=== PATIENT | male | born 1950 | race Caucasian/White ===

== ENCOUNTER 2018-03-01 07:27 | Inpatient (IN) | payer OTHER, MEDICARE ==
[2018-03-01] VITALS (9 sets, daily range): BP systolic 119–159; BP diastolic 63–99; PULSE 69–74; RESP 18; TEMP 97.9–98.4; O2SAT 94–97
[~2018-03-01] VITALS: Ht 180.3 cm; Wt 111.5 kg
[2018-03-01 08:02] LABS: AUTOMATED NEUTROPHIL # 3.8 TH/MM3 (1.8-7.7); BASOPHIL % 0.5 % (0.0-2.0); EOSINOPHIL # 0.1 TH/MM3 (0-0.4); EOSINOPHIL % 1.8 % (0.0-4.0); HEMATOCRIT 42.7 % (39.0-51.0); HEMOGLOBIN 14.5 GM/DL (13.0-17.0); LYMPH % 21.9 % (9.0-44.0); LYMPHOCYTE # 1.3 TH/MM3 (1.0-4.8); MEAN CELL VOLUME 91.6 FL (80.0-100.0); MEAN CORPUSCULAR HEMOGLOBIN 31.2 PG (27.0-34.0); MEAN CORPUSCULAR HGB CONC 34.1 % (32.0-36.0); MEAN PLATELET VOLUME 9.6 FL (7.0-11.0); MONOCYTE # 0.7 TH/MM3 (0-0.9); NEUT % 63.8 % (16.0-70.0); PLATELET COUNT 194 TH/MM3 (150-450); RED BLOOD COUNT 4.66 MIL/MM3 (4.50-5.90); RED CELL DISTRIBUTION WIDTH 18.1 % (11.6-17.2); WHITE BLOOD COUNT 5.9 TH/MM3 (4.0-11.0)
[2018-03-01 08:12] LABS: INTERNATIONAL NORMALIZED RATIO 3.7 RATIO; PROTHROMBIN TIME - PATIENT 37.3 SEC (9.8-11.6)
[2018-03-01 08:17] LABS: ALBUMIN 3.4 GM/DL (3.4-5.0); ALT (GPT) 25 U/L (12-78); AST (GOT) 25 U/L (15-37); BICARBONATE 28.5 MEQ/L (21.0-32.0); BLOOD UREA NITROGEN 8 MG/DL (7-18); CALCIUM 8.9 MG/DL (8.5-10.1); CHLORIDE 98 MEQ/L (98-107); CREATININE 0.87 MG/DL (0.60-1.30); GLOMERULAR FILTRATION RATE 87 ML/MIN (>89); GLUCOSE,RANDOM 118 MG/DL (74-106); MAGNESIUM 1.9 MG/DL (1.5-2.5); PHOSPHORUS 2.6 MG/DL (2.5-4.9); SODIUM (NA) 137 MEQ/L (136-145)
--- NOTE | 2018-03-01 08:18 | RADRPT ---
EXAM DATE/TIME: 03/01/2018 07:47 [facility] COMPARISON: No previous studies available for comparison. INDICATIONS : Palpitations. MEDICAL HISTORY : None. SURGICAL HISTORY : Pacemaker. ENCOUNTER: Initial ACUITY: 1 day PAIN SCORE: 0/10 LOCATION: Bilateral chest FINDINGS: The heart is normal. The pulmonary vascular pattern is normal. No focal infiltrate is noted. There is a tiny 5 mm nodule within the right mid lung field consistent with possible granuloma. A left subcla vian multilead pacemaker has its tips in the right heart. There is no pneumothorax. Degenerative mata ges are noted throughout the thoracic spine. CONCLUSION: 1. No acute focal pulmonary infiltrate or pulmonary vascular congestion. 2. 5 mm nodule within the right midlung field consistent with possible granuloma. Outpatient CT of th e chest maybe helpful to confirm central calcification within this nodule if clinically indicated. Marbin Mason MD on March 01, 2018 at 8:13 Board Certified Radiologist. This report was verified electronically.
[2018-03-01 08:20] LABS: ALKALINE PHOSPHATASE 82 U/L (45-117); TOTAL BILIRUBIN ADULT 1.1 MG/DL (0.2-1.0); TROPONIN I LESS THAN 0.02 NG/ML (0.02-0.05)
--- NOTE | 2018-03-01 08:20 | RADRPT ---
EXAM DATE/TIME: 03/01/2018 08:11 [facility] COMPARISON: No previous studies available for comparison. INDICATIONS : Left-sided cephalgia. RADIATION DOSE: 40.63 CTDIvol (mGy) MEDICAL HISTORY : Hypertension. SURGICAL HISTORY : Pacemaker. ENCOUNTER: Initial ACUITY: 2 days PAIN SCALE: 4/10 LOCATION: Left cranial TECHNIQUE: Multiple contiguous axial images were obtained of the head. Using automated exposure control and adj ustment of the mA and/or kV according to patient size, radiation dose was kept as low as reasonably a chievable to obtain optimal diagnostic quality images. DICOM format image data is available electro nically for review and comparison. FINDINGS: CEREBRUM: The ventricles are normal for age. No evidence of midline shift, mass lesion, hemorrhage or acute in farction. No extra-axial fluid collections are seen. POSTERIOR FOSSA: The cerebellum and brainstem are intact. The 4th ventricle is midline. The cerebellopontine angle i s unremarkable. EXTRACRANIAL: The visualized portion of the orbits is intact. SKULL: The calvaria is intact. No evidence of skull fracture. CONCLUSION: No acute disease. Marbin Mason MD on March 01, 2018 at 8:16 Board Certified Radiologist. This report was verified electronically.
--- NOTE | 2018-03-01 08:35 | PD ---
HPI Chief Complaint: Neuro Symptoms/ Deficits Time Seen by Provider: 07:40 Travel History International Travel<30 days: No Contact w/Intl Traveler<30days: No Traveled to known affect area: No History of Present Illness HPI 67-year-old male states for 2 days he has been having weakness and numbness to his left arm. He states he is due to have his Coumadin level checked next week. He states that he gets it checked every 6 weeks. He states he is also having more weakness than normal to his left leg. He denies any other concurrent complaints other than intermittent headache. Quality is tingly. Location is left arm. Severity is progressive and worsened again this morning. He denies specific modifying factors. PFSH Past Medical History Hx Anticoagulant Therapy: Yes (COUMADIN, ASA ) Cardiovascular Problems: Yes (HTN, A-FIB) Diabetes: Yes Patient Takes Glucophage: No Hypertension: Yes Past Surgical History Cardiac Surgery: Yes (PACEMAKER X 3, ABLATION) Social History Alcohol Use: Yes Tobacco Use: No Substance Use: No Allergies-Medications (Allergen,Severity, Reaction): Coded Allergies: lisinopril (Verified Adverse Reaction, Mild, Chest Pain, 03/01/18) enoxaparin (Verified Adverse Reaction, Unknown, 03/01/18) Review of Systems Except as stated in HPI: all other systems reviewed are Neg Physical Exam Narrative GENERAL: 67-year-old male in no apparent distress SKIN: Focused skin assessment warm/dry. HEAD: Atraumatic. Normocephalic. EYES: Pupils equal and round. No scleral icterus. No injection or drainage. ENT: No nasal bleeding or discharge. Mucous membranes pink and moist. NECK: Trachea midline. CARDIOVASCULAR: irregular rate and rhythm. Paced on monitor RESPIRATORY: No accessory muscle use. Clear to auscultation. Breath sounds equal bilaterally. GASTROINTESTINAL: Abdomen soft, non-tender, nondistended. MUSCULOSKELETAL: No obvious deformities. No clubbing. No cyanosis. NEUROLOGICAL: Awake and alert. Left arm drift noted, decrease strength to left arm, left leg 4 out of 5, notes numbness to left arm. Normal speech. PSYCHIATRIC: Appropriate mood and affect; insight and judgment normal. Data Data Last Documented VS Vital Signs Date Time Temp Pulse Resp B/P (MAP) Pulse Ox O2 Delivery O2 Flow Rate FiO2 03/01/18 07:46 98.3 71 18 159/99 (119) 97 Room Air Orders Orders Magnesium (Mg) (03/01/18 07:40) Phosphorus (Po4) (03/01/18 07:40) Complete Blood Count With Diff (03/01/18 07:40) Comprehensive Metabolic Panel (03/01/18 07:40) Ckmb (Isoenzyme) Profile (03/01/18 07:40) Troponin I (03/01/18 07:40) Urinalysis - C+S If Indicated (03/01/18 07:40) Act Partial Throm Time (Ptt) (03/01/18 07:40) Prothrombin Time / Inr (Pt) (03/01/18 07:40) Ct Brain W/O Iv Contrast(Rout) (03/01/18 ) Chest, Single Ap (03/01/18 ) Electrocardiogram (03/01/18 ) Iv Access Insert/Monitor (03/01/18 07:40) Ecg Monitoring (03/01/18 07:40) Oximetry (03/01/18 07:40) Type And Screen (03/01/18 07:40) CKMB (03/01/18 07:30) CKMB% (03/01/18 07:30) Admit Order (Ed Use Only) (03/01/18 08:53) Labs Laboratory Tests Test 03/01/18 07:30 White Blood Count 5.9 TH/MM3 Red Blood Count 4.66 MIL/MM3 Hemoglobin 14.5 GM/DL Hematocrit 42.7 % Mean Corpuscular Volume 91.6 FL Mean Corpuscular Hemoglobin 31.2 PG Mean Corpuscular Hemoglobin Concent 34.1 % Red Cell Distribution Width 18.1 % Platelet Count 194 TH/MM3 Mean Platelet Volume 9.6 FL Neutrophils (%) (Auto) 63.8 % Lymphocytes (%) (Auto) 21.9 % Monocytes (%) (Auto) 12.0 % Eosinophils (%) (Auto) 1.8 % Basophils (%) (Auto) 0.5 % Neutrophils # (Auto) 3.8 TH/MM3 Lymphocytes # (Auto) 1.3 TH/MM3 Monocytes # (Auto) 0.7 TH/MM3 Eosinophils # (Auto) 0.1 TH/MM3 Basophils # (Auto) 0.0 TH/MM3 CBC Comment DIFF FINAL Differential Comment Prothrombin Time 37.3 SEC Prothromb Time International Ratio 3.7 RATIO Activated Partial Thromboplast Time 46.4 SEC Blood Urea Nitrogen 8 MG/DL Creatinine 0.87 MG/DL Random Glucose 118 MG/DL Total Protein 7.0 GM/DL Albumin 3.4 GM/DL Calcium Level 8.9 MG/DL Phosphorus Level 2.6 MG/DL Magnesium Level 1.9 MG/DL Alkaline Phosphatase 82 U/L Aspartate Amino Transf (AST/SGOT) 25 U/L Alanine Aminotransferase (ALT/SGPT) 25 U/L Total Bilirubin 1.1 MG/DL Sodium Level 137 MEQ/L Potassium Level 3.8 MEQ/L Chloride Level 98 MEQ/L Carbon Dioxide Level 28.5 MEQ/L Anion Gap 11 MEQ/L Estimat Glomerular Filtration Rate 87 ML/MIN Total Creatine Kinase 180 U/L Creatine Kinase MB 2.9 NG/ML Troponin I LESS THAN 0.02 NG/ML MDM Medical Decision Making Medical Screen Exam Complete: Yes Emergency Medical Condition: Yes Medical Record Reviewed: Yes (Past history confirmed) Interpretation(s) CBC & BMP Diagram 03/01/18 07:30 Total Protein 7.0, Albumin 3.4, Calcium Level 8.9, Phosphorus Level 2.6, Magnesium Level 1.9, Alkaline Phosphatase 82, Aspartate Amino Transf (AST/SGOT) 25, Alanine Aminotransferase (ALT/SGPT) 25, Total Bilirubin 1.1 H Last [address] 03/01/18 0000 Signed Impressions: Service Date/Time: Thursday, March 01, 2018 08:11 - CONCLUSION: No acute disease. Marbin Mason MD Chest X-Ray 03/01/18 0000 Signed Impressions: Service Date/Time: Thursday, March 01, 2018 07:47 - CONCLUSION: 1. No acute focal pulmonary infiltrate or pulmonary vascular congestion. 2. 5 mm nodule within the right midlung field consistent with possible granuloma. Outpatient CT of the chest maybe helpful to confirm central calcification within this nodule if clinically indicated. Marbin Mason MD Differential Diagnosis Stroke, mass, bleed Narrative Course Will check workup and monitor. CT brain without bleed or mass. INR is therapeutic at 3.7. Will discuss with neurology and admit. patient updated Physician Communication Physician Communication dr morejon agrees to admit, states Attending is dr Manuel pritchett states to give baby aspirin and will follow Diagnosis Primary Impression: Left arm weakness Additional Impression: Left arm numbness Admitting Information Admitting Physician Requests: Admit Kayla Bello MD Mar 01, 2018 08:34
--- NOTE | 2018-03-01 09:18 | HHI.HP ---
[facility] Service Family Medicine Primary Care Physician Christi Jones MD Admission Diagnosis stroke Diagnoses: International Travel<30 Days: No Contact w/Intl Traveler<30days: No Known Affected Area: No History of Present Illness 67 y/o M w/hx of Afib and DM2 presents with left arm pain and weakness. Went to his PCP Dr. Rodrigues at the [facility] for pain in neck and shoulder that started two days ago, sent patient over due to concern for stroke. Pain in neck and shoulders has been worsening. Started when patient was sleeping. He woke up and took a couple of pills of tramadol, which didn't work. Patient has been up all night not been able to sleep due to pain. Starts at left side of the back of the head to the neck and goes down the arm to the hand. It a sharp, constant 9/10 pain. Laying flat makes pain worse. Raising arm position improves pain as well as sitting up. No numbness or tingling; endorses increased weakness of left arm. +nausea, headache with pain along the left samaritan, increased loss of balance that caused him to fall twice. Was moving things in the house and fell down, was able to get back up immediately. States when he closes his eyes, he feels off balance. No vision changes, no presyncope , no problem thinking or remembering things, no changes in mood. Has pacemaker in place - MRI contraindicated. Possible hx of heart attack prior to 2005. 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 Took his medications this morning. Blue Team: Dr. Christi Rodrigues, telephone # [phone] ext [phone] (Pam Chin MD R1) Review of Systems Constitutional: DENIES: Fatigue, Weight loss, Change in appetite Endocrine: DENIES: Polyuria Eyes: DENIES: Blurred vision, Eye pain, Vision loss Ears, nose, mouth, throat: COMPLAINS OF: Tinnitus (not new, chronic), Running Nose (allergies), DENIES: Hearing loss, Vertigo Gastrointestinal: DENIES: Abdominal pain, Bloody stools, Diarrhea, Nausea Genitourinary: DENIES: Urinary incontinence, Dysuria Musculoskeletal: DENIES: Muscle aches Integumentary: DENIES: Abnormal pigmentation Hematologic/lymphatic: DENIES: Bruising Neurologic: DENIES: Seizures, Speech Problems Psychiatric: DENIES: Confusion, Mood changes (Pam Chin MD R1) Past Family Social History Past Medical History Afib - pacemaker placed in 2005 HTN HLD DM type 2 COPD Osteoarthritis Ischemic cardiomyopathy 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 Past Surgical History Thumb surgery Cardiac ablation 3 pacemakers Reported Medications Carvedilol 25 mg, 1 and a one half tablets BID Prescribed Metformin 500 , 1 half tablet daily; but refuses to take it, makes him sick Furosemide 20 mg daily 81 mg aspirin chew daily Mg supplement 400 TID Warfarin 5 mg 1/2 tablet PO daily except one tablet PO MWF Vitamin B3 1,000 units, 2 tablets daily Albuterol inhaled 2 puffs by mouth q4H PRN Tramadol 50 mg Q8Hr PRN Folic acid 1 mg daily Etanercept injection weekly for arthritis simvastatin 80 mg HS Ketotifen eye drops -one drop both eyes BID for inflammation (Pam Chin MD R1) Allergies: Coded Allergies: lisinopril (Verified Adverse Reaction, Mild, Chest Pain, 03/01/18) enoxaparin (Verified Adverse Reaction, Unknown, 03/01/18) Family History Mom: , none Dad: ,none Social History Does not drink, smokes once in a while for about 50 years. Lives in [place] w/. No illicit or recreational drugs. (Pam Chin MD R1) Physical Exam Vital Signs Vital Signs Date Time Temp Pulse Resp B/P (MAP) Pulse Ox O2 Delivery O2 Flow Rate FiO2 03/01/18 07:46 98.3 71 18 159/99 (119) 97 Room Air 03/01/18 07:46 73 18 97 Room Air 03/01/18 07:45 74 18 97 Room Air 03/01/18 07:37 98.3 71 18 159/99 (119) 97 Physical Exam GENERAL: This is a friendly, elderly gentleman laying flat in bed, appears uncomfortable. SKIN: Cool and dry. HEAD: Atraumatic. Normocephalic. No temporal or scalp tenderness. EYES: Pupils equal round and reactive. Extraocular motions intact. No scleral icterus. No injection or drainage. ENT: Nose without bleeding, purulent drainage or septal hematoma. Throat without erythema, tonsillar hypertrophy or exudate. Uvula midline. Airway patent. NECK: Trachea midline. CARDIOVASCULAR: Regular rate and rhythm without murmurs, gallops, or rubs. RESPIRATORY: Clear to auscultation. Mildly decreased airflow. GASTROINTESTINAL: Abdomen soft, non-tender, nondistended. MUSCULOSKELETAL: Extremities without clubbing, cyanosis, or edema. No calf tenderness. NEUROLOGICAL: Awake and alert. Short term memory intact. Cranial nerves II through XII intact. No facial droop or tongue deviation. Possible pronator drift - patient complains of arm pain and difficulty keep arm in externally rotated position. RUE 5/5 strength, sensation intact, reflexes 2+. LUE 4/5 strength, unable to lift more than 90 degrees, sensation intact, reflexes 2+. Lower extremities has slightly decreased sensation (patient states due to peripheral neuropathy), 5/5 motor strength. Sensation and vibration intact in upper and lower extremities. No problems with rapid alternating movements, no hemispace neglect, able to name simple objects, able to perform heel to ibanez. Five out of 5 muscle strength in all muscle groups. Normal speech. No dysarthria or dysphasia. Good focus, attention, and comprehension. Laboratory Laboratory Tests Test 03/01/18 07:30 White Blood Count 5.9 Red Blood Count 4.66 Hemoglobin 14.5 Hematocrit 42.7 Mean Corpuscular Volume 91.6 Mean Corpuscular Hemoglobin 31.2 Mean Corpuscular Hemoglobin Concent 34.1 Red Cell Distribution Width 18.1 Platelet Count 194 Mean Platelet Volume 9.6 Neutrophils (%) (Auto) 63.8 Lymphocytes (%) (Auto) 21.9 Monocytes (%) (Auto) 12.0 Eosinophils (%) (Auto) 1.8 Basophils (%) (Auto) 0.5 Neutrophils # (Auto) 3.8 Lymphocytes # (Auto) 1.3 Monocytes # (Auto) 0.7 Eosinophils # (Auto) 0.1 Basophils # (Auto) 0.0 CBC Comment DIFF FINAL Differential Comment Prothrombin Time 37.3 Prothromb Time International Ratio 3.7 Activated Partial Thromboplast Time 46.4 Blood Urea Nitrogen 8 Creatinine 0.87 Random Glucose 118 Total Protein 7.0 Albumin 3.4 Calcium Level 8.9 Phosphorus Level 2.6 Magnesium Level 1.9 Alkaline Phosphatase 82 Aspartate Amino Transf (AST/SGOT) 25 Alanine Aminotransferase (ALT/SGPT) 25 Total Bilirubin 1.1 Sodium Level 137 Potassium Level 3.8 Chloride Level 98 Carbon Dioxide Level 28.5 Anion Gap 11 Estimat Glomerular Filtration Rate 87 Total Creatine Kinase 180 Creatine Kinase MB 2.9 Troponin I LESS THAN 0.02 (Pam Chin MD R1) Result Diagram: 03/01/18 0730 03/01/18 0730 Imaging Last Impressions Head CT 03/01/18 0000 Signed Impressions: Service Date/Time: Thursday, March 01, 2018 08:11 - CONCLUSION: No acute disease. Marbin Mason MD Chest X-Ray 03/01/18 0000 Signed Impressions: Service Date/Time: Thursday, March 01, 2018 07:47 - CONCLUSION: 1. No acute focal pulmonary infiltrate or pulmonary vascular congestion. 2. 5 mm nodule within the right midlung field consistent with possible granuloma. Outpatient CT of the chest maybe helpful to confirm central calcification within this nodule if clinically indicated. Marbin Mason MD (Pam Chin MD R1) Luis Fernando VTE Risk Assessment Luis Fernando VTE Risk Assessment: Mod/High Risk (score >= 2) (Pam Chin MD R1) Assessment and Plan Assessment and Plan 67 y/o M presenting w/left arm weakness and pain admitted for stroke-workup. Code Status FULL Discussed Condition With Dr. Quintana (Pam Chin MD R1) Attending Attestation THIS CASE WAS DISCUSSED WITH THE RESIDENT PHYSICIANS. I HAVE REVIEWED THE RECORD AND AGREE WITH THE ABOVE NOTE AND PLAN OF CARE WAS DISCUSSED. I HAVE AUTHORIZED THE ORDER FOR ADMISSION TO AN IN-PATIENT STATUS. At time of my exam the patient is complaining of continued pain in the neck and the arm and shoulder. He states the right arm is a little painful now as well. He states his leg continues to feel weak and "not right" He is able to lift his left arm off the bed but not resist. On exam --- neck -- TTP over the c5/c6 area, unable to extend and limited flexion, very limited rotation of the neck, Trapezius tenderness and spasm on the left side Left arm -- able to lift off the bed at the elbow but not the shoulder -- unable to resist any pressure 3/5 strength, very limited rotation and flexion/ extension of the left shoulder as well. Tender over the A-C joint left shoulder HEENT -- PERRL, OP clear, no cervical LAD CARDS -- regualr, no murmurs PULM - scattered wheeze, no crackles, moving air well ABD -- soft, NT, good bowel sounds SKIN - no lesions, no rashes NEURO _ speech and vision intact 1. left side weakness/pain -- consider CVA vs Musculoskeletal cause. CT neck reviewed with moderate stenosis of the C6/C7 range. MRI not possible due to pacemaker. Neuro consult pending. Will continue with current treatment plan and neuro checks --- check XRAY shoulder and trial of low dose muscle relaxant while workup pending. (Shameka Quintana MD) Problem List: (1) Left arm weakness ICD Codes: R29.898 - Other symptoms and signs involving the musculoskeletal system Status: Acute Plan: On Coumadin, INR 3.7 today, therapeutic CT head negative Cognition and mental status intact, short term memory intact Differential: ischemic stroke v acute cervical radiculopathy v migraine Vitals q4hrs Tele bedrest, fall precautions NIH stroke scale head of bed flat for 12 hours, permissive HTN to 200/100. Labetalol 10 mg IV Q2H PRN for SBP 220 or DBP >120. Neurochecks while awake Medications: SSI low dose Con't home Simvastatin 80 mg HS daily Aspirin 81 mg chew Testing: MRI contraindicated due to pacemaker CT of neck EKG, trops, and CK q6H Carotid US 2D echo Bedside swallow study - if passes, heart healthy diet Consults Neuro consulted, further recs pending Consulted rehab medicine, PT, CM (2) Control of atrial fibrillation with pacemaker ICD Codes: I48.91 - Unspecified atrial fibrillation; Z95.0 - Presence of cardiac pacemaker Plan: Warfarin 5 mg 1/2 tablet PO daily except one tablet PO MWF Hold due to supratherapeutic level 3.7 Check coags tomorrow Pharmacology consulted (3) HTN (hypertension) ICD Codes: I10 - Essential (primary) hypertension Plan: Home: Carvedilol 25 mg, 1 and a one half tablets BID Furosemide 20 mg daily Hold for now, allow permissive HTN up to 220/120 (4) Osteoarthritis ICD Codes: M19.90 - Unspecified osteoarthritis, unspecified site Status: Chronic Plan: Home: Tramadol 50 mg Q8Hr PRN Etanercept injection weekly for arthritis Will hold Tramadol for now (5) DM2 (diabetes mellitus, type 2) ICD Codes: E11.9 - Type 2 diabetes mellitus without complications Status: Chronic Plan: Non-compliant w/Metformin use Low dose sliding scale A1C (6) MRI contraindicated due to metal implant ICD Codes: Z53.09 - Procedure and treatment not carried out because of other contraindication Status: Chronic (7) HLD (hyperlipidemia) ICD Codes: E78.5 - Hyperlipidemia, unspecified Plan: Patient takes 80 mg Simvastatin daily. Order Atorvastatin 80 mg daily HS (8) COPD (chronic obstructive pulmonary disease) ICD Codes: J44.9 - Chronic obstructive pulmonary disease, unspecified Plan: Albuterol inhaled 2 puffs by mouth q4H PRN (9) FEN Plan: Fluids: none Electrolytes: not indicated Nutrition: heart healthy if passes swallow study DVT prophy: on warfarin, SCDs (Pam Chin MD R1) Physician Certification 2 Midnight Certification Type: Admission for Inpatient Services Order for Inpatient Services The services are ordered in accordance with Medicare regulations or non- Medicare payer requirements, as applicable. In the case of services not specified as inpatient-only, they are appropriately provided as inpatient services in accordance with the 2-midnight benchmark. Estimated LOS (days): 2 2 days is the estimated time the patient will need to remain in the hospital, assuming treatment plan goals are met and no additional complications. Post-Hospital Plan: Not yet determined (Pam Chin MD R1) 2 Midnight Certification Type: Admission for Inpatient Services Post-Hospital Plan: Not yet determined (Shameak Quintana MD) Problem Qualifiers (1) DM2 (diabetes mellitus, type 2): Qualified Codes: E11.8 - Type 2 diabetes mellitus with unspecified complications Pam Chin MD R1 Mar 01, 2018 09:18 Shameka Quintana MD Mar 01, 2018 15:50
[2018-03-01] MEDS ORDERED: SODIUM CHLORIDE 0.9% FLUSH 10 ML FLUSH IV FLUSH PRN (09:45)
[2018-03-01] MEDS ORDERED: DEXTROSE 50% IN WATER 50 ML VIAL(D50) IV PUSH PRN (09:45)
[2018-03-01] MEDS ORDERED: LABETALOL HCL 100 MG/20 ML VIAL IV PUSH PRN (09:45)
[2018-03-01] MEDS ORDERED: GLUCAGON 1 MG/ML VIAL OTHER PRN (09:45)
[2018-03-01] MEDS ORDERED: ACETAMINOPHEN 325 MG TAB PO PRN ×2 (09:45→18:15)
[2018-03-01] MEDS ORDERED: ASPIRIN 81 MG CHEW TAB PO ONE (10:00)
[2018-03-01] MEDS ORDERED: RESP: ALBUTEROL 2.5 MG/3 ML NEB (PRN) NEB (10:45)
--- NOTE | 2018-03-01 11:15 | RADRPT ---
EXAM DATE/TIME: 03/01/2018 10:09 [facility] COMPARISON: No previous studies available for comparison. INDICATIONS : Cerebrovascular accident. MEDICAL HISTORY : Hypertension. Tinnitus. Afib. Diabetes. Anticoagulant therapy, Coumadin & Aspirin. SURGICAL HISTORY : Pacemaker. Cardiac ablation. Bilateral knee surgery. Bilateral hand surgery. ENCOUNTER: Initial ACUITY: 1 day PAIN SCORE: 4/10 LOCATION: Bilateral neck PEAK SYSTOLIC VELOCITIES (cm/sec): ICA/CCA RATIO: Right: 1.1 Left: 1.0 ICA: Right: 68 Left: 75 CCA: Right: 60 Left: 77 ECA: Right: 92 Left: 76 VERTEBRAL: Right: 57 antegrade Left: 41 antegrade Elevated flow velocities and ICA/CCA ratios have been found to correlate with increased degrees of vessel stenosis, calculated as percentage of diameter relative to a normal segment of distal ICA/CCA FINDINGS: RIGHT CAROTID: No significant stenosis is visualized. The waveforms are within normal limits. LEFT CAROTID: No significant stenosis is visualized. The waveforms are within normal limits. VERTEBRAL ARTERIES: Antegrade flow is seen in both vertebral arteries. MISCELLANEOUS: None. CONCLUSION: Normal examination. Kenneth Ceballos MD on March 01, 2018 at 11:12 Board Certified Radiologist. This report was verified electronically.
[2018-03-01] MEDS: INSULIN ASPART SUPPLEMENTAL SCALE SQ SCH ×3 (12:00→21:00)
--- NOTE | 2018-03-01 13:36 | EKG ---
Date Performed: 03/01/2018 Time Performed: 07:35:49 PTAGE: 67 years EKG: ELECTRONIC VENTRICULAR PACEMAKER ABNORMAL RHYTHM ECG NO PREVIOUS TRACING DOCTOR: Jaswant Painter Interpretating Date/Time 03/01/2018 13:34:54
[2018-03-01 13:42] LABS: TROPONIN I LESS THAN 0.02 NG/ML (0.02-0.05)
[2018-03-01 14:31] LABS: BILIRUBIN, URINE NEG (NEG); BLOOD, URINE NEG (NEG); GLUCOSE,URINE NEG (NEG); HYALINE CAST, URINE 3 /lpf (RARE); KETONE, URINE 10 mg/dL (NEG); MUCUS URINE FEW /lpf (OCC); NITRITE,URINE NEG (NEG); PH, URINE 5.5 (5.0-8.5); SQUAMOUS EPITHELIAL CELL URINE <1 /hpf (0-5); URINE COLOR YELLOW (YELLW/STRAW); URINE LEUKOCYTE ESTERASE NEG (NEG)
--- NOTE | 2018-03-01 15:05 | RADRPT ---
EXAM DATE/TIME: 03/01/2018 14:35 [facility] COMPARISON: No previous studies available for comparison. INDICATIONS : Worsening neck pain. RADIATION DOSE: 23.98 CTDIvol (mGy) MEDICAL HISTORY : Cardiovascular disease. Cerebrovascular disease. Hypertension.Diabetes SURGICAL HISTORY : Pacemaker. ENCOUNTER: Initial ACUITY: 1 day PAIN SCALE: 9/10 LOCATION: neck TECHNIQUE: Volumetric scanning of the cervical spine was performed. Multiplanar reconstructions in the sagittal, coronal and oblique axial planes were performed. Using automated exposure control and adjustment o f the mA and/or kV according to patient size, radiation dose was kept as low as reasonably achievable to obtain optimal diagnostic quality images. DICOM format image data is available electronically f or review and comparison. FINDINGS: VERTEBRAE: Normal vertebral body height. Moderate disc space narrowing of C6-7. ALIGNMENT: No evidence of subluxation. C2-C3: The bony spinal canal is normal in size. No evidence of disc bulge or herniation. The neural forami na are bilaterally patent. C3-C4: The bony spinal canal is normal in size. No evidence of disc bulge or herniation. The neural forami na are bilaterally patent. C4-C5: The bony spinal canal is normal in size. No evidence of disc bulge or herniation. The neural forami na are bilaterally patent. C5-C6: The bony spinal canal is mildly stenotic. The neural foramina are bilaterally patent. C6-C7: Moderate canal stenosis secondary to a ridge of disc osteophyte complex. The neural foramina are delbert aterally patent. C7-T1: The bony spinal canal is normal in size. No evidence of disc bulge or herniation. The neural forami na are bilaterally patent. CONCLUSION: Moderate stenosis at the C6-7 level. Mild narrowing at the C5-6 level. No acute fracture. Kenneth Ceballos MD on March 01, 2018 at 14:59 Board Certified Radiologist. This report was verified electronically.
[2018-03-01] MEDS ORDERED: WARFARIN SOD 5 MG TAB PO SCH (16:00)
--- NOTE | 2018-03-01 16:06 | MB ---
cc: Manuel Draper MD, PhD DATE: 03/01/2018 REASON FOR CONSULTATION: Left arm weakness. HISTORY OF PRESENT ILLNESS: Mr. Phoenix is a very nice 67-year-old man who woke up a couple of days ago noting severe pain in the left neck area, left shoulder blade area, which progressed into the left arm over a 2-day period of time. Began to experience numbness in the arm, tingling and weakness, particularly of the hand. He has a long history of left leg weakness. This is not new. He has no other neurologic symptoms. PAST MEDICAL HISTORY: He has diabetes, which he states has been under very good control. He has a history of hyperlipidemia, hypertension, COPD, ischemic cardiomyopathy, ulnar neuropathy, peripheral neuropathy, cardiac ablation, pacemaker x 3 in the past. MEDICATIONS AT HOME: Carvedilol, Lasix, aspirin 81 mg daily, Coumadin 5 mg 1/2 tablet daily, vitamin B1, albuterol inhaler, tramadol, folic acid. ALLERGIES: LISINOPRIL, ENOXAPARIN. NEUROLOGIC EXAMINATION: Blood pressure is 159/99, pulse 73, respiratory rate is 18, temperature is 98.3. Higher cortical functions normal. Cranial nerves intact. Motor: He has 4/5 left deltoid, 4/5 left biceps, 4/5 triceps, 3/5 interossei on the left. He has got normal strength in the right arm and both legs. Sensory: Diffusely diminished left arm reflexes at 1+, symmetric, with no Babinski sign. DIAGNOSTIC DATA: CT brain is normal. CT cervical spine shows mild stenosis at C6-7 and C5-6. No acute fracture. Carotid ultrasound is negative. 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 RECOMMENDATIONS: We will start gabapentin. Recommend physical therapy. Manuel Draper MD, PhD KATYA/SB , 03:29 PM , 04:05 PM
[2018-03-01 16:11] LABS: HEMOGLOBIN A1C 6.3 % (4.3-6.0)
[2018-03-01] MEDS ORDERED: NALOXONE HCL 0.4 MG/ML AMP IV PUSH PRN (18:15)
[2018-03-01] MEDS ORDERED: KETOROLAC TROMETHAMINE 30 MG/ML (IVP) VIAL IV PUSH PRN (18:15)
--- NOTE | 2018-03-01 18:31 | ECHRPT ---
Indication: CVA/TIA CONCLUSIONS The left ventricular systolic function is low normal with an estimated ejection fraction in the rang e of 50- 55%. Mild concentric left ventricular hypertrophy. Vnioi-rc-yirx mitral valve regurgitation. There is trace tricuspid valve regurgitation. Trace pulmonary valve regurgitation. BP: / HR: Rhythm: MEASUREMENTS (Male / Female) Normal Values Technical Quality:Fair 2D ECHO LV Diastolic Diameter PLAX 5.0 cm 4.2 - 5.9 / 3.9 - 5.3 cm LV Systolic Diameter PLAX 3.4 cm IVS Diastolic Thickness 1.2 cm 0.6 - 1.0 / 0.6 - 0.9 cm LVPW Diastolic Thickness 1.2 cm 0.6 - 1.0 / 0.6 - 0.9 cm LV Relative Wall Thickness 0.5 RV Internal Dim ED PLAX 3.2 cm LVOT Diameter 2.1 cm LA Systolic Diameter LX 3.9 cm 3.0 - 4.0 / 2.7 - 3.8 cm M-MODE Aortic Root Diameter MM 3.0 cm LA Systolic Diameter MM 6.2 cm LA Ao Ratio MM 2.1 AV Cusp Separation MM 1.7 cm DOPPLER AV Peak Velocity 136.0 cm/s AV Peak Gradient 7.4 mmHg LVOT Peak Velocity 91.8 cm/s LVOT Peak Gradient 3.4 mmHg AV Area Cont Eq pk 2.3 cm MV Area PHT 3.5 cm Mitral E Point Velocity 91.3 cm/s Mitral A Point Velocity 18.8 cm/s Mitral E to A Ratio 4.9 LV E' Lateral Velocity 6.5 cm/s Mitral E to LV E' Lateral Ratio 14.0 LV E' Septal Velocity 11.4 cm/s Mitral E to LV E' Septal Ratio 8.0 TR Peak Velocity 294.0 cm/s TR Peak Gradient 34.6 mmHg Right Atrial Pressure 10.0 mmHg Pulmonary Artery Systolic Pressu 44.6 mmHg Right Ventricular Systolic Press 44.6 mmHg FINDINGS LEFT VENTRICLE The left ventricular systolic function is low normal with an estimated ejection fraction in the rang e of 50- 55%. Mild concentric left ventricular hypertrophy. Normal left ventricular size. RIGHT VENTRICLE The right ventricular size is normal. LEFT ATRIUM The left atrial size is upper limits of normal. RIGHT ATRIUM The right atrial size is normal. ATRIAL SEPTUM Normal atrial septal thickness without atrial level shunting by limited color doppler interrogation. AORTA The aortic root and proximal ascending aorta are normal in size on limited imaging. MITRAL VALVE Structurally normal mitral valve. Tyxif-cu-wogs mitral valve regurgitation. No mitral valve stenosis. AORTIC VALVE Trileaflet aortic valve. No aortic valve stenosis or regurgitation. TRICUSPID VALVE Structurally normal tricuspid valve. There is trace tricuspid valve regurgitation. The estimated pulmonary arterial pressure is 44.6 mmHg. PULMONARY VALVE Trace pulmonary valve regurgitation. VESSELS The inferior vena cava is normal in size. PERICARDIUM No pericardial effusion. Nigel Hudson DO (Electronically Signed) Final Date:01 March 2018 18:30
--- NOTE | 2018-03-01 20:23 | RADRPT ---
EXAM DATE/TIME: 03/01/2018 20:01 [facility] COMPARISON: No previous studies available for comparison. INDICATIONS : Left shoulder pain. No known injury. MEDICAL HISTORY : Hypertension. AFIB. Diabetes. SURGICAL HISTORY : Pacemaker. ENCOUNTER: Initial ACUITY: 1 day PAIN SCORE: 4/10 LOCATION: Left Shoulder. FINDINGS: No fracture or subluxation seen of the left shoulder. There is moderate acromioclavicular and mild glenohumeral joint osteoarthritis. Small osteochondral body likely in the biceps tendon sheath at the level of the lower groove. There c ould also be subcentimeter osteochondral bodies in the axillary recess. CONCLUSION: 1. Intact left shoulder. 2. Moderate acromioclavicular joint osteoarthritis. 3. Mild glenohumeral joint osteoarthritis with suspected osteochondral bodies. Please see above. Milton Mayers MD on March 01, 2018 at 20:19 Board Certified Radiologist. This report was verified electronically.
[2018-03-01] MEDS ORDERED: ATORVASTATIN 40 MG TAB PO SCH ×2 (21:00)
[2018-03-01] MEDS: SODIUM CHLORIDE 0.9% FLUSH 10 ML FLUSH IV FLUSH SCH (21:44)
[2018-03-01] MEDS: GABAPENTIN 300 MG CAP PO SCH (21:45)
[2018-03-01] MEDS: traMADol HCL 50 MG TAB PO PRN (21:45)
[2018-03-01 22:59] LABS: TROPONIN I LESS THAN 0.02 NG/ML (0.02-0.05)
--- NOTE | 2018-03-01 23:26 | EKG ---
Date Performed: 03/01/2018 Time Performed: 19:34:25 PTAGE: 67 years EKG: ELECTRONIC VENTRICULAR PACEMAKER ABNORMAL RHYTHM ECG PREVIOUS TRACING : 03/01/2018 07.35 Since the previous tracing, no significant change noted DOCTOR: Nigel Hudson Interpretating Date/Time 03/01/2018 23:24:48
[2018-03-02] VITALS: BP 133/69; PULSE 70; RESP 18; TEMP 98.1; O2SAT 96
[2018-03-02 04:00] VITALS: BP 154/85; PULSE 76; RESP 18; TEMP 98; O2SAT 94
[2018-03-02] MEDS: traMADol HCL 50 MG TAB PO PRN ×2 (06:45→14:28)
[2018-03-02 07:26] LABS: INTERNATIONAL NORMALIZED RATIO 2.4 RATIO; PROTHROMBIN TIME - PATIENT 24.7 SEC (9.8-11.6)
[2018-03-02 07:40] LABS: BICARBONATE 28.3 MEQ/L (21.0-32.0); CALCIUM 9.2 MG/DL (8.5-10.1); CREATININE 0.74 MG/DL (0.60-1.30)
[2018-03-02 07:43] LABS: CHOLESTEROL/ HDL RATIO 2.14 RATIO
[2018-03-02] MEDS: INSULIN ASPART SUPPLEMENTAL SCALE SQ SCH ×2 (08:00→12:00)
[2018-03-02 08:22] VITALS: BP 148/87; PULSE 70; RESP 18; TEMP 97.9; O2SAT 95
[2018-03-02 08:37] VITALS: PULSE 69
[2018-03-02] MEDS ORDERED: CARVEDILOL 12.5 MG TAB PO SCH (09:00)
[2018-03-02] MEDS ORDERED: FUROSEMIDE 20 MG TAB PO SCH (09:00)
[2018-03-02] MEDS: GABAPENTIN 300 MG CAP PO SCH (10:06)
[2018-03-02] MEDS: SODIUM CHLORIDE 0.9% FLUSH 10 ML FLUSH IV FLUSH SCH (10:11)
[2018-03-02 10:36] LABS: HEMOGLOBIN A1C 6.4 % (4.3-6.0)
[2018-03-02 12:20] VITALS: BP 117/56; PULSE 72; RESP 18; TEMP 98; O2SAT 95
[2018-03-02] MEDS ORDERED: NEUR300C PO (12:21)
--- NOTE | 2018-03-02 12:42 | HHI.FPPN ---
Subjective Remarks Patient is doing well today. Reports pain in his left shoulder there is continued. Improved with tramadol 50 mg. No other problems or complaints. Is sitting up comfortably, able to tolerate food well. Vitals were stable overnight. (Pam Chin MD R1) Objective Vitals Vital Signs Date Time Temp Pulse Resp B/P (MAP) Pulse Ox O2 Delivery O2 Flow Rate FiO2 03/02/18 12:20 98.0 72 18 117/56 (76) 95 03/02/18 12:09 21 03/02/18 08:22 97.9 70 18 148/87 (107) 95 03/02/18 04:00 98.0 76 18 154/85 (108) 94 03/02/18 00:00 98.1 70 18 133/69 (90) 96 03/01/18 23:00 69 03/01/18 22:08 21 03/01/18 21:30 69 03/01/18 20:00 98.0 71 18 119/63 (81) 94 03/01/18 16:00 98.4 71 18 145/85 (105) 95 (Pam Chin MD R1) Result Diagram: 03/01/18 0730 03/02/18 0619 Objective Remarks O. CONSTITUTIONAL/GEN: normally nourished, in NAD. EYES: conjunctiva normal, PERRLA, EOMI. ENT: Mouth and pharynx normal. LUNGS: Mild expiratory wheeze on exam bilaterally, respiratory effort is normal. CARDIOVASCULAR: RR without murmur or gallop. No significant edema. GI/ABD: Soft nondistended. NEURO: No focal deficits. Gait is normal SKIN: color normal, no rashes noted. HEME/LYMPH: no bruising, petechia or significant adenopathy MUSC: back is normal in appearance. Extremities are normal in appearance. PSYCH/MENTAL STATUS: Alert and oriented. (Pam Chin MD R1) A/P Assessment and Plan 67 y/o M presenting w/left arm weakness and pain admitted for stroke-workup. Stroke workup found to be negative. CT scan shows mild stenosis of C6-C7 and 5- 6, found to have left brachial neuritis per neurology. Conservative management with PT and gabapentin twice daily recommended at this time. Discharge Planning Discharge today with PT referral, follow-up in neurology in 2 weeks, and gabapentin 300 mg twice daily. Patient may continue home tramadol for pain as needed. (Pam Chin MD R1) Attending Attestation Patient seen and examined. Still notes weakness in LUE with some pain. Has tramadol at home which he uses sparklingly for arthritic pain. Currently started on gabapentin by neurology with PT recommended. May use tramadol with gabapentin for break through pain. Type 2 DM. Was rpescribed metformin at [facility] but stopped taking when he ran out due to loose stool. Home BGM's reported fasting <130. Will continue current treatment with f/u appt at the [facility] in 2 weeks. Case reviewed and discussed with the resident team. Agree with plan of care as discussed with me and documented in the resident note. 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 twice daily (2) Control of atrial fibrillation with pacemaker ICD Codes: I48.91 - Unspecified atrial fibrillation; Z95.0 - Presence of cardiac pacemaker Plan: Warfarin 5 mg 1/2 tablet PO daily except one tablet PO MWF [facility]. Due for an appointment soon for warfarin adjustment Held yesterday due to supratherapeutic level 3.7 INR is therapeutic today at 2.4 Pharmacology consulted Patient to continue warfarin home medication after discharge and [facility] (3) HTN (hypertension) ICD Codes: I10 - Essential (primary) hypertension Plan: Resume: carvedilol 25 mg, 1 and a one half tablets BID Furosemide 20 mg daily (4) Osteoarthritis ICD Codes: M19.90 - Unspecified osteoarthritis, unspecified site Status: Chronic Plan: Home: Tramadol 50 mg Q8Hr PRN Etanercept injection weekly for arthritis (5) DM2 (diabetes mellitus, type 2) ICD Codes: E11.9 - Type 2 diabetes mellitus without complications Status: Chronic Plan: Non-compliant w/Metformin use Currently controlled without medication, A1c 6.3 Follow-up with PCP for further management (6) MRI contraindicated due to metal implant ICD Codes: Z53.09 - Procedure and treatment not carried out because of other contraindication Status: Chronic (7) HLD (hyperlipidemia) ICD Codes: E78.5 - Hyperlipidemia, unspecified Status: Chronic Plan: Patient takes 80 mg Simvastatin daily. Order Atorvastatin 80 mg daily HS while inpatient (8) COPD (chronic obstructive pulmonary disease) ICD Codes: J44.9 - Chronic obstructive pulmonary disease, unspecified Plan: Albuterol inhaled 2 puffs by mouth q4H PRN (9) FEN Plan: Fluids: none Electrolytes: not indicated Nutrition: Diabetic diet DVT prophy: on warfarin, SCDs (Pam Chin MD R1) Problem Qualifiers (1) DM2 (diabetes mellitus, type 2): Qualified Codes: E11.8 - Type 2 diabetes mellitus with unspecified complications Pam Chin MD R1 Mar 02, 2018 12:42 Claudio Gastelum MD Mar 03, 2018 11:22
--- NOTE | 2018-03-02 12:43 | HHI.DCPOC ---
Discharge Care Plan Diagnosis: (1) Left arm weakness Goals to Promote Your Health * To prevent worsening of your condition and complications * To maintain your health at the optimal level Directions to Meet Your Goals Take your medications as prescribed Follow your dietary instruction Follow activity as directed Keep your appointments as scheduled Take your immunizations and boosters as scheduled If your symptoms worsen call your PCP, if no PCP go to Urgent Care Center or Emergency Room Smoking is Dangerous to Your Health. Avoid second hand smoke Call the 24-hour hour crisis hotline for domestic abuse at Pam Chin MD R1 Mar 02, 2018 12:43
[2018-03-02] MEDS ORDERED: FOLI400T PO (12:52)
[2018-03-02] MEDS ORDERED: SIMV80TA PO (12:52)
[2018-03-02] MEDS ORDERED: TRAM50TA PO (12:52)
[2018-03-02] MEDS ORDERED: WARF-23 PO (12:52)
[2018-03-02] MEDS ORDERED: ALAW0.02 EACH EYE (12:52)
[2018-03-02] MEDS ORDERED: FURO20TA PO (12:52)
[2018-03-02] MEDS ORDERED: ASPI-516 CHEW (12:52)
[2018-03-02] MEDS ORDERED: ALBU6.7H INH (12:52)
[2018-03-02] MEDS ORDERED: CARV25TA PO (12:52)
== END 2018-03-02 15:05 | disposition home or self-care (01) | DRG 74 ==
LOC: NEPE 07:27 → NEDA 08:54 → N05A 12:14
PROVIDERS: ADMIT Family Medicine; ATTEND Family Medicine
DX: G54.5 Neuralgic amyotrophy (principal); G54.0 Brachial plexus disorders; I48.91 Unspecified atrial fibrillation; J44.9 Chronic obstructive pulmonary disease, unspecified; R29.898 Other symptoms and signs involving the musculoskeletal system; M48.02 Spinal stenosis, cervical region; I10 Essential (primary) hypertension; E78.5 Hyperlipidemia, unspecified; E11.42 Type 2 diabetes mellitus with diabetic polyneuropathy; W19.XXXA Unspecified fall, initial encounter; M19.90 Unspecified osteoarthritis, unspecified site; I25.5 Ischemic cardiomyopathy; Z53.09 Procedure and treatment not carried out because of other contraindication; Z79.01 Long term (current) use of anticoagulants; Z79.82 Long term (current) use of aspirin; I25.2 Old myocardial infarction; Z95.0 Presence of cardiac pacemaker; Z91.19 Patient's noncompliance with other medical treatment and regimen; Z72.0 Tobacco use
CPT/HCPCS: 70450; 71045; 72125; 73030; 80048; 80053; 80061; 81001; 82550; 82552; 82948; 83036; 83735; 84100; 84484; 85025; 85610; 85730; 86850; 86900; 86901; 93005; 93306; 93880